=== PATIENT | female | born 1950 | race Caucasian/White ===

== ENCOUNTER 2016-03-04 11:18 | Outpatient (CLI) | payer MEDICARE, OTHER | END 2016-03-04 11:19 | disposition home or self-care (01) | DX: K76.0 Fatty (change of) liver, not elsewhere classified (principal) ==

== ENCOUNTER 2016-03-05 15:40 | Outpatient (CLI) | payer MEDICARE, OTHER | END 2016-03-05 15:41 | disposition home or self-care (01) | DX: M51.36 Other intervertebral disc degeneration, lumbar region (principal); M51.37 Other intervertebral disc degeneration, lumbosacral region; M47.816 Spondylosis without myelopathy or radiculopathy, lumbar region; M43.16 Spondylolisthesis, lumbar region ==

== ENCOUNTER 2017-09-01 09:10 | Outpatient (CLI) | payer OTHER, MEDICARE | END 2017-09-01 09:11 | disposition critical access hospital (66) | LOC: EMS 09:10 | PROVIDERS: ATTEND Surgery | DX: R07.9 Chest pain, unspecified (principal) | CPT/HCPCS: A0425; A0427 ==

== ENCOUNTER 2017-09-01 09:23 | Inpatient (IN) | payer OTHER, MEDICARE ==
--- NOTE | 2017-09-01 10:18 | XRAY Report ---
Procedure Date: 09/01/2017 Accession Number: [id number] / [id number] Procedure: XR - Chest 1 View X-Ray CPT Code: 29050 FULL RESULT: EXAM: CHEST RADIOGRAPHY EXAM DATE: 09/01/2017 10:00 AM. CLINICAL HISTORY: Cp. COMPARISON: Chest radiograph dated 09/01/2017. TECHNIQUE: 1 view. FINDINGS: Lungs/Pleura: No focal opacities evident. No pleural effusion. No pneumothorax. Mediastinum: Within exam limitations, the cardiomediastinal contour is normal. Other: None. IMPRESSION: No focal consolidation. RADIA
[2017-09-01 10:21] LABS: BASOPHILS # (AUTO) 0.1 10^3/uL (0.0-0.1); BASOPHILS % (AUTO) 0.9 %; EOSINOPHILS # (AUTO) 0.3 10^3/uL (0.0-0.7); EOSINOPHILS % (AUTO) 4.3 %; LYMPHOCYTES # (AUTO) 1.9 10^3/uL (1.5-3.5); LYMPHOCYTES % (AUTO) 30.6 %; MEAN CORPUSCULAR HEMOGLOBIN 34.2 pg (27.0-31.0); MEAN CORPUSCULAR HGB CONC 33.8 g/dL (32.0-36.0); MEAN CORPUSCULAR VOLUME 101.1 fL (81.0-99.0); MEAN PLATELET VOLUME 8.3 fL (7.9-10.8); MONOCYTES # (AUTO) 0.7 10^3/uL (0.0-1.0); MONOCYTES % (AUTO) 10.6 %; NEUTROPHILS # (AUTO) 3.3 10^3/uL (1.5-6.6); NEUTROPHILS % (AUTO) 53.6 %; PLT - PLATELET COUNT 233 10^3/uL (130-450); RED CELL DISTRIBUTION WIDTH 12.1 % (12.0-15.0); WHITE BLOOD COUNT 6.2 x10^3/uL (4.8-10.8)
--- NOTE | 2017-09-01 10:34 | ED Physician Documentation ---
History of Present Illness - Stated complaint Stated Complaint: ABD PX - Chief complaint Chief Complaint: Cardiac - Additonal information Additional information: hx from pt 67 f HTN HLD and strong fhx CAD this Am at 7 while in bed she develped chest and back pressure and pain to her jaw, SO, diaphoresis, NV called 911 was given asa and nitro sx eventually resolve - she thinks sx lasted at least 2 hr last EST 2013 was neg no leg swelling Review of Systems Constitutional: reports: Sweats. denies: Fever Cardiac: reports: Chest pain / pressure Respiratory: reports: Dyspnea GI: denies: Abdominal Pain, Vomiting, Diarrhea Musculoskeletal: denies: Extremity pain, Extremity swelling Endocrine: denies: Easy bruising / bleeding Immunocompromised: denies: Immunocompromised PD PAST MEDICAL HISTORY - Past Medical History Cardiovascular: Hypertension, High cholesterol - Past Surgical History Past Surgical History: Yes Ortho: Knee replacement - Present Medications Home Medications: Ambulatory Orders Medication Instructions Recorded Confirmed Lisinopril 10 mg PO DAILY 09/01/17 09/01/17 Simvastatin 20 mg PO QPM 09/01/17 09/01/17 Venlafaxine HCl [Venlafaxine HCl 150 mg PO DAILY 09/01/17 09/01/17 ER] - Allergies Allergies/Adverse Reactions: Allergies Allergy/AdvReac Type Severity Reaction Status Date / Time Penicillins Allergy Severe Hives Verified 09/26/12 12:21 - Social History Does the pt smoke?: No Smoking Status: Never smoker Does the pt drink ETOH?: No - Immunizations Immunizations are current?: Yes PD ED PE NORMAL - Vitals Vital signs reviewed: Yes - HEENT HEENT: Atraumatic - Neck Neck: Supple, no meningeal sign - Cardiac Cardiac: RRR - Respiratory Respiratory: No respiratory distress, Clear bilaterally - Abdomen Abdomen: Soft, Non tender - Derm Derm: Normal color - Extremities Extremities: No edema, No calf tenderness / cord - Neuro Neuro: Alert and oriented X 3 Results - Vitals Vitals: Vital Signs - 24 hr 09/01/17 09/01/17 09/01/17 09:38 10:44 12:10 Temperature 36.6 C 36.6 C Heart Rate 65 77 87 Respiratory 16 14 16 Rate Blood Pressure 142/78 H 126/70 117/66 O2 Saturation 100 94 96 09/01/17 12:36 Temperature Heart Rate 87 Respiratory Rate Blood Pressure 117/66 O2 Saturation Oxygen O2 Source Room air - EKG (time done) 0934 Rate: Rate (enter#) (60) Rhythm: NSR Intervals: Normal OR Ischemia: Q waves (inf) - Labs Labs: Laboratory Tests 09/01/17 09/01/17 09/01/17 10:15 10:15 10:15 WBC 6.2 RBC 4.10 L Hgb 14.0 Hct 41.5 MCV 101.1 H MCH 34.2 H MCHC 33.8 RDW 12.1 Plt Count 233 MPV 8.3 Neut # (Auto) 3.3 Lymph # (Auto) 1.9 Marin # (Auto) 0.7 Eos # (Auto) 0.3 Baso # (Auto) 0.1 Absolute Nucleated RBC 0.00 Nucleated RBC % 0.0 PT INR Sodium 138 Potassium 3.5 Chloride 105 Carbon Dioxide 23 Anion Gap 10.0 BUN 19 Creatinine 0.6 Estimated GFR (MDRD) 100 Glucose 95 Calcium 9.0 Magnesium Total Bilirubin 0.8 GGT AST 46 H ALT 58 Alkaline Phosphatase 39 L Troponin I < 0.04 Total Protein 6.9 Albumin 4.1 Globulin 2.8 Albumin/Globulin Ratio 1.5 Lipase 37 Vitamin B12 Folate TSH Free T4 09/01/17 09/01/17 09/01/17 10:15 14:20 14:20 WBC RBC Hgb Hct MCV MCH MCHC RDW Plt Count MPV Neut # (Auto) Lymph # (Auto) Marin # (Auto) Eos # (Auto) Baso # (Auto) Absolute Nucleated RBC Nucleated RBC % PT 10.7 INR 0.9 Sodium Potassium Chloride Carbon Dioxide Anion Gap BUN Creatinine Estimated GFR (MDRD) Glucose Calcium Magnesium Total Bilirubin GGT 103 H AST ALT Alkaline Phosphatase Troponin I Total Protein Albumin Globulin Albumin/Globulin Ratio Lipase Vitamin B12 720 Folate 12.33 TSH Free T4 09/01/17 09/01/17 09/01/17 14:20 14:20 14:20 WBC RBC Hgb Hct MCV MCH MCHC RDW Plt Count MPV Neut # (Auto) Lymph # (Auto) Marin # (Auto) Eos # (Auto) Baso # (Auto) Absolute Nucleated RBC Nucleated RBC % PT INR Sodium Potassium 3.1 L Chloride Carbon Dioxide Anion Gap BUN Creatinine Estimated GFR (MDRD) Glucose Calcium Magnesium 2.1 Total Bilirubin GGT AST ALT Alkaline Phosphatase Troponin I < 0.04 Total Protein Albumin Globulin Albumin/Globulin Ratio Lipase Vitamin B12 Folate TSH 2.59 Free T4 0.74 - Rads (name of study) CXR Radiology: See rad report (no acute) PD MEDICAL DECISION MAKING - ED course ED course: sx very concerning for ACS in pt with numerous risk factors sx presently resolved will req tele obs ЕКАТЕРИНА stress etc called hospitalist at 1110 - Sepsis Event Vital Signs: Vital Signs - 24 hr 09/01/17 09/01/17 09/01/17 09:38 10:44 12:10 Temperature 36.6 C 36.6 C Heart Rate 65 77 87 Respiratory 16 14 16 Rate Blood Pressure 142/78 H 126/70 117/66 O2 Saturation 100 94 96 09/01/17 12:36 Temperature Heart Rate 87 Respiratory Rate Blood Pressure 117/66 O2 Saturation Oxygen O2 Source Room air Departure - Departure Disposition: ED Place in Observation Clinical Impression: Chest pain Qualifiers: Chest pain type: unspecified Qualified Code(s): R07.9 - Chest pain, unspecified Condition: Good Discharge Date/Time: 09/01/17 12:39
[2017-09-01 10:39] LABS: ALBUMIN 4.1 g/dL (3.2-5.5); ALBUMIN/GLOBULIN RATIO 1.5 (1.0-2.2); BILIRUBIN,TOTAL 0.8 mg/dL (0.2-1.0); CREATININE 0.6 mg/dL (0.4-1.0); TOTAL PROTEIN 6.9 g/dL (6.7-8.2)
[2017-09-01] MEDS ORDERED: TEMAZEPAM 15 MG CAPSULE PO PRN (11:55)
[2017-09-01] MEDS ORDERED: MORPHINE 2 MG/ML SYRINGE IVP PRN (11:55)
[2017-09-01] MEDS ORDERED: ACETAMINOPHEN 325 MG TABLET PO PRN (11:55)
[2017-09-01] MEDS: NITROGLYCERIN SL 0.4 MG TABLET SL SCH ×2 (12:36→19:42)
[2017-09-01 14:46] LABS: MAGNESIUM 2.1 mg/dL (1.7-2.8)
[2017-09-01 15:05] LABS: THYROID STIMULATING HORMONE 2.59 uIU/mL (0.34-5.60)
[2017-09-01 15:07] LABS: FREE T4 (FREE THYROXINE) 0.74 ng/dL (0.58-1.64)
[2017-09-01 15:15] LABS: FOLATE 12.33 ng/mL (5.90 - >24.8)
[2017-09-01] MEDS ORDERED: LORazepam 2 MG/ML VIAL IVP PRN (15:31)
[2017-09-01 15:52] LABS: INR 0.9 (0.8-1.2); PT - PROTHROMBIN TIME 10.7 secs (9.9-12.6)
[2017-09-01] MEDS ORDERED: ENOXAPARIN 80 MG/0.8 ML SYRINGE SUBQ SCH (16:00)
[2017-09-01] MEDS: POTASSIUM CHLOR 10 MEQ/100 ML 10 MEQ/100 ML BAG IV SCH ×2 (16:05→21:24)
[2017-09-01] MEDS: METOPROLOL TARTRATE 25 MG TABLET PO SCH ×2 (16:10→21:32)
[2017-09-01] MEDS: SODIUM CHLORIDE FLUSH 0.9% 10 ML SYRINGE IVP SCH (16:27)
[2017-09-01] MEDS: NITROGLYCERIN 2% PASTE TOP SCH ×2 (16:27→21:34)
[2017-09-01] MEDS: ENOXAPARIN 80 MG/0.8 ML SYRINGE SUBQ SCH (16:29)
[2017-09-01] MEDS ORDERED: SODIUM CHLORIDE 0.9% 1,000 ML IV SCH (18:00)
[2017-09-01 18:47] LABS: BILIRUBIN,URINE NEGATIVE (NEGATIVE); GLUCOSE, URINE (UA) NEGATIVE (NEGATIVE); KETONES,URINE (UA) NEGATIVE (NEGATIVE); LEUKOCYTE ESTERASE, URINE TRACE (NEGATIVE); NITRITE,URINE NEGATIVE (NEGATIVE); OCCULT BLOOD,URINE NEGATIVE (NEGATIVE); PROTEIN,URINE NEGATIVE (NEGATIVE); UROBILINOGEN,URINE 0.2 (NORMAL) E.U./dL (NORMAL)
[2017-09-01 18:49] LABS: CLARITY,URINE CLEAR (CLEAR)
[2017-09-01 19:02] LABS: BACTERIA,URINE None Seen /HPF (None Seen); RBC,URINE None Seen /HPF (0-5); SQUAMOUS EPITHELIAL CELL,UR NONE SEEN (<= Few)
[2017-09-01] MEDS ORDERED: PROCHLORPERAZINE 10 MG/2 ML VIAL IVP PRN (19:17)
[2017-09-01] MEDS: SODIUM CHLORIDE FLUSH 0.9% 10 ML SYRINGE IVP PRN (19:28)
[2017-09-01] MEDS: THIAMINE 100 MG TABLET PO SCH (19:28)
[2017-09-01] MEDS ORDERED: NITROGLYCERIN SL 0.4 MG TABLET SL PRN (19:50)
[2017-09-01] MEDS ORDERED: NITROGLYCERIN SL 0.4 MG TABLET SL ONE (19:53)
[2017-09-01] MEDS ORDERED: ATORVASTATIN 40 MG TABLET PO SCH (21:00)
[2017-09-01] MEDS ORDERED: ATORVASTATIN 10 MG TABLET PO SCH (21:00)
[2017-09-02] MEDS: SODIUM CHLORIDE FLUSH 0.9% 10 ML SYRINGE IVP SCH ×2 (01:03→15:09)
[2017-09-02] MEDS: ENOXAPARIN 80 MG/0.8 ML SYRINGE SUBQ SCH (04:17)
[2017-09-02] MEDS: NITROGLYCERIN 2% PASTE TOP SCH ×2 (04:21→15:15)
[2017-09-02 04:52] LABS: VBG PH 7.302 (7.31-7.41)
[2017-09-02 04:57] LABS: BASOPHILS # (AUTO) 0.1 10^3/uL (0.0-0.1); EOSINOPHILS # (AUTO) 0.4 10^3/uL (0.0-0.7); EOSINOPHILS % (AUTO) 6.6 %; HGB - HEMOGLOBIN 14.6 g/dL (12.0-16.0); LYMPHOCYTES # (AUTO) 2.2 10^3/uL (1.5-3.5); LYMPHOCYTES % (AUTO) 37.8 %; MEAN CORPUSCULAR HEMOGLOBIN 34.4 pg (27.0-31.0); MEAN CORPUSCULAR HGB CONC 33.7 g/dL (32.0-36.0); MEAN CORPUSCULAR VOLUME 102.4 fL (81.0-99.0); MEAN PLATELET VOLUME 9.1 fL (7.9-10.8); MONOCYTES # (AUTO) 0.7 10^3/uL (0.0-1.0); MONOCYTES % (AUTO) 11.2 %; NEUTROPHILS # (AUTO) 2.6 10^3/uL (1.5-6.6); NEUTROPHILS % (AUTO) 43.4 %; PLT - PLATELET COUNT 233 10^3/uL (130-450); RED BLOOD COUNT 4.24 10^6/uL (4.20-5.40); RED CELL DISTRIBUTION WIDTH 12.3 % (12.0-15.0); WHITE BLOOD COUNT 5.9 x10^3/uL (4.8-10.8)
[2017-09-02 05:06] LABS: ALBUMIN 3.9 g/dL (3.2-5.5); ALBUMIN/GLOBULIN RATIO 1.6 (1.0-2.2); ALKALINE PHOSPHATASE 37 IU/L (42-121); ALT ALANINE AMINOTRANSFERASE 46 IU/L (10-60); AST ASPARTATE AMINOTRANSFERASE 34 IU/L (10-42); BILIRUBIN,TOTAL 0.9 mg/dL (0.2-1.0); BUN - BLOOD UREA NITROGEN 18 mg/dL (6-20); CALCIUM 9.2 mg/dL (8.5-10.3); CARBON DIOXIDE - CO2 23 mmol/L (21-32); CHLORIDE 109 mmol/L (101-111); CHOL/HDL RATIO 3.7 (<4.4); CHOLESTEROL 203 mg/dL; CREATININE 0.7 mg/dL (0.4-1.0); GFR - MDRD 84 (>89); GLUCOSE 102 mg/dL (70-100); HDL CHOLESTEROL 55 mg/dL; LDL CHOLESTEROL,CALCULATED 122 mg/dL; LDL/HDL RATIO 2.2 (<4.4); MAGNESIUM 2.3 mg/dL (1.7-2.8); PHOSPHORUS 5.1 mg/dL (2.5-4.6); SODIUM 140 mmol/L (135-145); TOTAL PROTEIN 6.3 g/dL (6.7-8.2); VLDL CHOLESTEROL 26 mg/dL
[2017-09-02] MEDS ORDERED: POTASSIUM CHLORIDE 20 MEQ TABLET PO SCH (08:00)
[2017-09-02] MEDS ORDERED: LISINOPRIL 20 MG TABLET PO SCH (09:00)
[2017-09-02] MEDS ORDERED: POLYETHYLENE GLYCOL 3350 17 GM PACKET PO SCH (09:00)
[2017-09-02] MEDS ORDERED: METOPROLOL TARTRATE 25 MG TABLET PO SCH (09:00)
[2017-09-02] MEDS ORDERED: FAMOTIDINE 20 MG TABLET PO SCH (09:00)
[2017-09-02] MEDS ORDERED: ASPIRIN EC 81 MG TABLET PO SCH (09:00)
[2017-09-02] MEDS ORDERED: VENLAFAXINE ER 75 MG CAPSULE PO SCH (09:00)
[2017-09-02] MEDS: SODIUM CHLORIDE FLUSH 0.9% 10 ML SYRINGE IVP PRN (10:13)
[2017-09-02] MEDS ORDERED: REGADENOSON 0.4 MG/5 ML SYRINGE IVP ONE ×2 (11:19→13:54)
[2017-09-02] MEDS ORDERED: AMINOPHYLLINE 250 MG/10 ML VIAL IV ONE (12:47)
--- NOTE | 2017-09-02 14:32 | Nuclear Medicine Report ---
Procedure Date: 09/02/2017 Accession Number: [id number] / [id number] Procedure: NM - Myocardial Perfusion STR/RST CPT Code: FULL RESULT: EXAM: SINGLE-ISOTOPE PHARMACOLOGICAL STRESS TEST WITH REGADENOSON. SINGLE-ISOTOPE AND ONE-DAY REST/STRESS MYOCARDIAL PERFUSION SCANS WITH TOMOGRAPHIC IMAGING, QUANTITATIVE ANALYSIS, WALL MOTION ANALYSIS AND CALCULATION OF EJECTION FRACTION. EXAM DATE: 09/02/2017 01:56 PM. CLINICAL HISTORY: Chest pain , Abn EKG. COMPARISON: None. TECHNIQUE: After the intravenous administration of 9.2 mCi of Tc-99m sestamibi, a rest myocardial perfusion scan was done with tomography. Motion correction was applied when appropriate. After an appropriate delay, pharmacological stress was performed with the infusion of 0.4 mg regadenoson per protocol. According to protocol, 38.8 mCi of Tc-99m sestamibi was injected for stress myocardial perfusion scan. Motion correction was applied when appropriate. Gated tomographic images were obtained for wall motion analysis and computation of left ventricular ejection fraction. FINDINGS: Perfusion images: Left ventricular chamber size is normal at rest and unchanged at stress. No convincing fixed perfusion deficits. There is LAD groove artifact. No convincing reversible perfusion deficits. Gated images: No convincing focal wall motion abnormality. The left ventricular ejection fraction is estimated at 74% (normal IMPRESSION: 1. No convincing reversible perfusion deficits to indicate stress-induced ischemia. 2. No convincing fixed perfusion deficits. 3. Left ventricular ejection fraction of 74% (normal 4. No focal wall motion abnormalities. RADIA ADDENDUM: 09/02/17 14:34 Discussed by phone with Dr. Delgado on 09/02/17 at 1435 hours.
[2017-09-02] MEDS: THIAMINE 100 MG TABLET PO SCH (15:09)
[2017-09-02 15:11] VITALS: BP 138/73
--- NOTE | 2017-09-02 15:59 | Discharge Plan ---
Discharge Plan Disposition: Home, Self Care Condition: Stable Prescriptions: Metoprolol Succinate [Toprol Xl] 25 mg PO DAILY #30 tab.er.24h Diet: Cardiac Activity Restrictions: Activity as Tolerated Shower Restrictions: No Driving Restrictions: No Instruction Topics: AFL/Afib, Atrial Flutter, ED Paroxysmal Atrial Flutter Additional Instructions or Follow Up instructions: Stop taking the Lisinopril. Start taking Toprol XL 25 mg daily. A prescription for a 1 month supply was sent to [facility] in [place]. Resume all your other pre-hospital medications. Start taking 1 aspirin daily (either 81 mg or 325 mg), for the rest of your life , for stroke and heart attack prevention. See your doctor in 7-10 days in follow-up. More cardiac tests may be needed ( such as a Holter monitor), or an adjustment in the Toprol dose may be needed. Decrease your alcohol intake to 1 drink per day. Red wine is preferred over a martini drink. No Smoking: If you smoke, Please STOP! Call for help. Follow-up with: Teresita Todd ARNP [Primary Care Provider] -
--- NOTE | 2017-09-02 21:16 | CARDIAC PROCEDURE NOTE ---
DATE OF SERVICE: 09/02/2017 Physician: Angely Delgado MD PROCEDURE: Lexiscan pharmaceutical stress test with myocardial perfusion nuclear imaging. Baseline EKG: Normal sinus rhythm, Q-waves present in leads III and aVF, poor R -wave progression, minimal J-point elevation in leads III and aVF. The patient underwent Lexiscan stress testing after signing informed consent. The patient developed her typical chest pressure and jaw pain, which she rated a 5-6/10 at maximum. These symptoms and a mild headache, nausea persisted at 5 minutes post Lexiscan. She therefore received Aminophylline 25 mg IV x2, which helped decrease her symptoms to nearly gone. EKG at peak: No new or different changes. IMPRESSION: Nondiagnostic stress test due to abnormal resting EKG using a pharmaceutical stress agent. Nuclear images reported separately. TD: 09/02/2017 20:03 MTDD
--- NOTE | 2017-09-09 18:29 | HISTORY & PHYSICAL EXAMINATION ---
DATE OF SERVICE: 09/01/2017 Physician: Angely Delgado MD HISTORY OF PRESENT ILLNESS: This is a 67-year-old white female with a strong family history of heart disease (both parents and many of her grandparents and siblings with cardiac disease), history of hypertension, elevated cholesterol who presented with chest pain. The patient states she has had palpitations for many years, which were never caught to determine a diagnosis on prior workup. She awoke this morning with palpitations which then resulted in chest pressure that radiated to the jaw. She also had nausea and vomiting and shortness of breath with this. She took aspirin and in the emergency room, she was given sublingual nitroglycerin and had relief. There has been mild chest pressure since that time and she has not told anyone. She was admitted from the emergency room to Observation for evaluation of chest pain. Moments ago she developed two paroxysmal episodes of atrial flutter with a ventricular rate of 180 and she did feel her typical palpitations with these, associated with jaw pain. She is now being moved from Observation status to inpatient status into the ICU for management of chest pain and new onset of paroxysmal atrial flutter. PAST MEDICAL HISTORY 1. Hypertension. 2. Elevated cholesterol. ALLERGIES: PENICILLIN. MEDICATIONS 1. Simvastatin 20 mg daily. 2. Lisinopril 10 mg daily. 3. Aspirin p.r.n. for pain, not a scheduled daily dose. 4. Venlafaxin ER 150 mg daily. SOCIAL HISTORY: The patient is a nonsmoker who never smoked. She drinks 2 or more Martinis per day. She uses no illicit drugs. She lives with her . She is retired from teaching. REVIEW OF SYSTEMS: The patient remembers having a stress test many years ago when she was being evaluated for the palpitations. She has had Holter monitors in the past, which were normal. She denies any history of sleep apnea. A comprehensive review of systems was performed and the pertinent positives are here and in the HPI, the rest are negative. PHYSICAL EXAMINATION GENERAL: White female who appears younger than her age. She is in no distress. VITAL SIGNS: Blood pressure 150/80, heart rate 70 in sinus rhythm currently, afebrile, room air saturation 98%. HEENT: Unremarkable. Her oral mucosa is moist. NECK: Without thyromegaly, JVD, or carotid bruits. CHEST: Clear. HEART: Heart sounds are normal. No audible murmur. No gallop. ABDOMEN: Soft, benign. EXTREMITIES: No clubbing, cyanosis, edema. NEUROLOGIC: Intact. LABORATORIES: Normal electrolytes. Normal BUN and creatinine. Elevated GGT at 101 (normal is 3-38). Troponin not detectable. Unremarkable CBC except elevated MCV at 101. Normal INR. Unremarkable urinalysis. CHEST X-RAY: No active disease. EKG: Normal sinus rhythm, inferior Q waves, poor R-wave progression across the precordium. IMPRESSION/DIAGNOSES 1. Chest pain. 2. Paroxysmal atrial flutter. 3. Hypertension. 4. Elevated cholesterol history. 5. Alcohol use (? abuse) with elevated MCV and GGT. PLAN: The patient is now in the ICU on telemetry. Begin therapeutic dose of Lovenox to manage her chest pain, which could be unstable angina. She has a CHADS score of 1 ( hypertension), therefore she should be on an aspirin dose daily. Recommend changing her lisinopril to a beta-carl which would help with both rate control and blood pressure. Check lipids and treat per guidelines. Recommend checking B12 and folate levels. Depending on her troponins, and a resting Echo result, if no wall motion abnormalities, then proceed to a stress test. The patient is agreeable with the plan. CODE STATUS: FULL CODE. DEEP VENOUS THROMBOSIS PROPHYLAXIS: Therapeutic doses of Lovenox will be ordered for angina. ATTESTATION: The patient is expected to be discharged or transferred to another facility within 96 hours: Yes. TD: 09/09/2017 18:01 KARAN
--- NOTE | 2017-09-09 19:29 | DISCHARGE SUMMARY ---
Physician: Angely Delgado MD DATE OF ADMISSION: 09/01/2017 DATE OF DISCHARGE: 09/02/2017 HISTORY OF PRESENT ILLNESS: This is a 67-year-old white female with a history of hypertension, hyperlipidemia and possible alcohol use in excess, who presented with palpitations that awoke her from sleep and resulted in chest pain radiating to the jaw along with nausea, vomiting, and shortness of breath. The symptoms were relieved with sublingual nitroglycerin. She received aspirin as well. She was initially placed in Observation but noted to have paroxysmal atrial flutter on 2 episodes, ventricular rates in the 180s. She was therefore moved to the ICU for evaluation and management. HOSPITAL COURSE AND DISCHARGE DIAGNOSES 1. Chest pain. The patient was managed with aspirin, beta-blockers, nitro paste. Her troponins were not detectable x2. An Echo was done that showed no resting wall motion abnormalities. She proceeded to a pharmaceutical stress test. She had no dysrhythmias during this. She did experience her typical chest pressure, which resolved with Aminophylline for reversal. There were no ischemic EKG changes during the pharmaceutical stress. The nuclear scan revealed no evidence of ischemia. It was felt that the patient's chest pain was related to the tachycardia (when in atrial flutter) since the palpitations preceded her chest pain. Since this patient has a strong family history of early heart disease on both sides of the family and in many family members, aggressive risk factor management is advised with blood pressure control, cholesterol control and she was advised to take an aspirin daily. 2. Paroxysmal atrial flutter. This patient's CHADS score is 1 (hypertension). The patient should be on daily aspirin, not aspirin p.r.n. pain. This was reviewed with the patient and she understands. The patient's management for blood pressure was also changed in order to use a beta-carl in case the atrial flutter should recur (her ventricular rate with her atrial flutter was 180). Thyroid function tests were done and there were no signs of hyperthyroidism. Another etiology of her atrial flutter may be alcohol excess. She was advised to decrease her alcohol intake from 2 Martinis per day to lower intake. 3. Hypertension. The patient's lisinopril preadmission dosing was stopped and she was put on Toprol-XL 25 mg daily for management of hypertension and if atrial flutter with a rapid rate should recur. 4. Hyperlipidemia. The patient's lipid panel revealed a total cholesterol of 203, an LDL of 128, HDL of 55, and triglycerides of 128. She should continue on a statin. 5. Alcohol use (possible abuse) with high MCV and elevated GGT. There were no signs of alcoholism or alcohol withdrawal, but her intake was advised to be decreased. B12 and folate levels were normal. LABS AND IMAGING: Reviewed and summarized above. CONDITION AT DISCHARGE: Stable. PHYSICAL EXAMINATION AT DISCHARGE VITAL SIGNS: Blood pressure 140/70, heart rate 70, afebrile, room air saturation 100%. HEENT: Unremarkable. NECK: Without JVD, thyromegaly, or carotid bruits. CHEST: Clear. HEART: Sounds normal. No murmur. ABDOMEN: Soft and benign. EXTREMITIES: No edema. NEUROLOGIC: Intact. MEDICATIONS AT DISCHARGE: 1. Toprol XL 25 mg daily. 2. Simvastatin 20 mg daily at night. 3. Venlafaxine ER 150 mg daily. 4. Aspirin 81 mg daily. Lisinopril was stopped. FOLLOWUP: With her PCP in the next 7-10 days. She may have to reestablish with a [employer], as she remembers seeing one in the past for the palpitations. CODE STATUS: FULL CODE. Time required to complete this entire discharge, chart review, patient education , prescription orders, dictation: 60 minutes. cc: JE Castillo TD: 09/09/2017 18:07 KARAN
--- NOTE | 2017-09-12 16:43 | HISTORY & PHYSICAL EXAMINATION ---
Chief Complaint - Chief Complaint Chief Complaint: Date of service was 09/01/17. See dictation of H&P dated . PMH/PSH - Past Medical History Cardiovascular: positive: Hypertension, High cholesterol Respiratory: positive: Sleep apnea Endocrine/Autoimmune: positive: None GI: positive: GERD : positive: None HEENT: positive: Chronic vision loss Psych: positive: Claustrophobia Musculoskeletal: positive: Rheumatoid arthritis Derm: positive: None - Past Surgical History Ortho: positive: Knee replacement Social & Family Hx - Social History Does the pt smoke?: No Smoking Status: Never smoker Does the pt drink ETOH?: No Meds/Allgy - Home Medications Home Medications: Ambulatory Orders Medication Instructions Recorded Confirmed Simvastatin 20 mg PO QPM 09/01/17 09/01/17 Venlafaxine HCl [Venlafaxine HCl 150 mg PO DAILY 09/01/17 09/01/17 ER] Metoprolol Succinate [Toprol Xl] 25 mg PO DAILY #30 tab.er.24h 09/02/17 - Allergies Allergies/Adverse Reactions: Allergies Allergy/AdvReac Type Severity Reaction Status Date / Time Penicillins Allergy Severe Hives Verified 09/26/12 12:21 Results - Lab Results Fish Bones: 09/02/17 04:10 09/02/17 04:10 CP/CHF Plan - Plan Patient Problems: All Active Problems Atrial flutter, paroxysmal (Acute) Chest pain (Acute)
== END 2017-09-02 15:35 | disposition home or self-care (01) | DRG 313 ==
LOC: EDUNIT# → ED 09:23 → OBS 11:55 → OBSVTOIN 14:29 → ICU 14:44
PROVIDERS: ADMIT Internal Medicine; ATTEND Internal Medicine
DX: R07.9 Chest pain, unspecified (principal); I48.92 Unspecified atrial flutter; I10 Essential (primary) hypertension; E78.5 Hyperlipidemia, unspecified; F10.10 Alcohol abuse, uncomplicated; Z79.899 Other long term (current) drug therapy; Z96.659 Presence of unspecified artificial knee joint; Z82.49 Family history of ischemic heart disease and other diseases of the circulatory system
CPT/HCPCS: 36415; 71045; 78452; 80053; 80061; 81001; 81003; 82330; 82607; 82746; 82977; 83690; 83721; 83735; 84100; 84132; 84439; 84443; 84484; 85025; 85610; 87150; 93005; 93017; 93306; 99284

== ENCOUNTER 2018-01-18 20:40 | Outpatient (CLI) | payer OTHER, MEDICARE ==
--- NOTE | 2018-01-19 16:06 | Ultrasound Report ---
Reason: KENDELL CERVICAL DYSPLASIA Procedure Date: 01/18/2018 Accession Number: [id number] / [id number] Procedure: US - Pelvic Complete CPT Code: FULL RESULT: EXAM: PELVIC ULTRASOUND EXAM DATE: 01/18/2018 09:45 PM. CLINICAL HISTORY: KENDELL, cervical dysplasia. COMPARISON: None. TECHNIQUE: Realtime transabdominal pelvic scan performed to identify the uterus and adnexa and as an overview of other pelvic structures with static image documentation. The transvaginal ultrasound portion of the examination could not be completed due to patient refusal. FINDINGS: Limited exam by absence of transvaginal ultrasound. Uterus: 7.3 x 3.6 x 2.5 cm, volume 34 cc. Anteverted position. Normal overall size and echotexture. Masses: None. Endometrium: 4.3 mm. Normal. Cervix: Unremarkable. Right Ovary: 2.0 x 1.3 x 1.4 cm, volume 1.9 cc. Normal echotexture and blood flow. Left Ovary: 2.0 x 1.6 x 1.6 cm, volume 2.7 cc. Normal echotexture and blood flow. Free Fluid: None. Other: None. IMPRESSION: Limited transabdominal ultrasound with no abnormality detected. RADIA
== END 2018-01-18 20:41 | disposition home or self-care (01) ==
LOC: DI 20:40
PROVIDERS: ATTEND Obstetrics & Gynecology
DX: N87.9 Dysplasia of cervix uteri, unspecified (principal)
CPT/HCPCS: 76830; 76856

== ENCOUNTER 2018-01-30 13:46 | Outpatient (CLI) | payer OTHER, MEDICARE ==
[2018-01-30 14:13] LABS: BASOPHILS # (AUTO) 0.1 10^3/uL (0.0-0.1); EOSINOPHILS # (AUTO) 0.5 10^3/uL (0.0-0.7); EOSINOPHILS % (AUTO) 7.6 %; HGB - HEMOGLOBIN 15.8 g/dL (12.0-16.0); LYMPHOCYTES # (AUTO) 1.7 10^3/uL (1.5-3.5); MEAN CORPUSCULAR HGB CONC 33.8 g/dL (32.0-36.0); MEAN CORPUSCULAR VOLUME 100.6 fL (81.0-99.0); MEAN PLATELET VOLUME 8.5 fL (7.9-10.8); MONOCYTES # (AUTO) 0.8 10^3/uL (0.0-1.0); MONOCYTES % (AUTO) 12.7 %; NEUTROPHILS # (AUTO) 3.4 10^3/uL (1.5-6.6); NEUTROPHILS % (AUTO) 52.7 %; PLT - PLATELET COUNT 246 10^3/uL (130-450); RED BLOOD COUNT 4.64 10^6/uL (4.20-5.40); RED CELL DISTRIBUTION WIDTH 12.9 % (12.0-15.0); WHITE BLOOD COUNT 6.5 x10^3/uL (4.8-10.8)
[2018-01-30 14:32] LABS: ALBUMIN 4.6 g/dL (3.2-5.5); ALBUMIN/GLOBULIN RATIO 1.6 (1.0-2.2); BILIRUBIN,TOTAL 0.9 mg/dL (0.2-1.0); CALCIUM 9.6 mg/dL (8.5-10.3); CREATININE 0.9 mg/dL (0.4-1.0); TOTAL PROTEIN 7.5 g/dL (6.7-8.2)
--- NOTE | 2018-01-30 15:15 | XRAY Report ---
Reason: TOTAL LAPROSCOPIC HYSTERECTOMY Procedure Date: 01/30/2018 Accession Number: [id number] / [id number] Procedure: XR - Chest 2 View X-Ray CPT Code: 88745 FULL RESULT: EXAM: CHEST RADIOGRAPHY EXAM DATE: 01/30/2018 02:47 PM. CLINICAL HISTORY: Total laparoscopic hysterectomy. COMPARISON: Chest 1 view 09/01/2017 9:52 AM Chest 2 views PA/LAT 09/26/2012 1:15 PM. TECHNIQUE: 2 views. FINDINGS: Lungs/Pleura: No focal opacities evident. No pleural effusion. No pneumothorax. Normal volumes. Mediastinum: Heart and mediastinal contours are unremarkable. Other: There are a few calcified hilar and mediastinal lymph nodes likely present and unchanged when compared to prior exam of 09/01/2017. IMPRESSION: Normal 2-view chest radiography. RADIA
== END 2018-01-30 13:47 | disposition home or self-care (01) ==
LOC: LAB 13:46
PROVIDERS: ATTEND Obstetrics & Gynecology
DX: Z01.811 Encounter for preprocedural respiratory examination (principal); Z01.812 Encounter for preprocedural laboratory examination; I44.4 Left anterior fascicular block; N87.9 Dysplasia of cervix uteri, unspecified; N39.3 Stress incontinence (female) (male)
CPT/HCPCS: 36415; 71046; 80053; 85025; 86850; 86900; 86901; 93005

== ENCOUNTER 2018-02-01 07:57 | Day surgery (SDC) | payer OTHER, MEDICARE ==
--- NOTE | 2018-01-24 20:27 | PREOP HISTORY & PHYSICAL ---
Date of Admission: 02/01/2018 IDENTIFICATION: A 67-year-old G2, P2-0-0-2. HISTORY OF PRESENT ILLNESS Patient presents today for her preoperative visit. She has been scheduled for a total laparoscopic hysterectomy, bilateral salpingo-oophorectomy, transobturator taping and cystoscopy on 02/01/2018. I have been following patient with respect to her history of cervical dysplasia. I first met her 01/12/2016 for colposcopy. Her cytology at that time was as follows: 03/02/2013, Pap smear was negative, but positive high-risk HPV. 02/08/2014, Pap semar was negative, but a positive high risk HPV. 02/02/2015 Pap smear was ASCUS H and a positive high risk HPV. 03/05/2015, ectocervical biopsy via colposcopy was a low grade squamous intraepithelial lesion/KENDELL 1. ECC without atypia. 12/10/2015 Pap smear was ASCUS with positive high risk HPV. Ectocervical biopsy on 01/12/2016 showed low grade intraepithelial lesion/KENDELL 1. Patient continued to have consistent cervical cytology. Due to recurrent low- grade squamous cervical dysplasia, on 02/01/2017 she underwent a LEEP. This came back with an anterior lip showing KENDELL 1 as well as the posterior lip. Further cytology revealed a 11/28/2017 Pap smear was ASCUS H with a positive HPV. She had colposcopy on 12/19/2017 which was not satisfactory secondary to her cervical os being stenotic. This, however, is not surprising given her previous LEEP. Biopsy at that time revealed KENEDLL 1. I discussed with patient her options are to continue serial cytology with colposcopy as indicated, repeating a LEEP or proceeding to a cold knife cone, and finally, she may have a hysterectomy. I was very obvious with her, telling her that sometimes it is advisory to undergo a repeat cold knife cone or LEEP procedure given the unsatisfactory colposcopy. However, since a LEEP procedure was done about a year ago and the margins were clear, I think the risk of her having a cervical cancer is extremely low. Patient, at this point in time, has verbalized her desire to proceed with a hysterectomy since she has obtained her deductible during this trace year. Patient has also had a fci history of urinary leakage. This occurs when she has increased intraabdominal pressure such as laughing, coughing, and sneezing. I had a long discussion with patient regarding the risks, benefits, alternatives, indications, expectations of the transobturator taping. Patient understands that there is a small risk of mesh erosion as well as a bladder obstruction. She will need to take antibiotics after this procedure in order to minimize the risk of postoperative cystitis. I did have a long discussion with patient about both the total laparoscopic hysterectomy and bilateral salpingo-oophorectomy, transobturator taping, and cystoscopy. She understood the intrinsic risk of anesthesia, hemorrhage, infection and damage to surrounding organs. Damage to surrounding organs may include but are not limited to an inadvertent laceration, cauterization or ligation of adjacent ureters, bladder, and intestines. Furthermore, with the surgery, she may have chronic pelvic pain secondary to adhesions. Should cervical cancer be shown on the pathology report, she would require to have a surgical staging procedure done by gynecological oncologist. Patient also had questions with regards to hormone replacement and an oophorectomy. Clarified for Concepcion that since she is already postmenopausal, she would not need to take any supplemental hormone replacement. After all patient's questions were answered to her satisfaction, she verbalized her desire to proceed with surgery. Consent forms have been signed. PAST MEDICAL HISTORY 1. Hypertension. 2. Depression. PAST SURGICAL HISTORY 1. Right ACL repair. 2. Right arm repair 1991. 3. Tonsillectomy. 4. LEEP procedure in 2017. ALLERGIES: PENICILLIN, WHICH SHE HAS HIVES. Her pharmacy of choice is [facility] in [place], [place]. MEDICATIONS 1. Lisinopril 10 mg 1 tab p.o. daily. 2. Venlafaxine. SOCIAL HISTORY: She denies any tobacco. She does consume alcohol on a social basis, as well as marijuana via Vape Pen. Patient is retired from the [employer], and was a former nanny. PAST MEDICAL HISTORY: Two term spontaneous vaginal deliveries, biggest baby weighing 7 pounds 7 ounces. She denies any sexually transmitted diseases. Menopause occurred at age 52 and she was on hormone replacement for heavy bleeding. Patient recalls it was only for a short period of time. Mammograms have been reported is within normal limits. FAMILY HISTORY: She denies any female carcinoma. REVIEW OF SYSTEMS: Negative unless otherwise stated. PHYSICAL EXAMINATION VITAL SIGNS: Height is 65 inches, weighs 176 pounds, BMI is 29.39, blood pressure 144/88. GENERAL: Patient is a well-developed, well-nourished female, in no apparent distress. She is alert and oriented x3. HEENT: Within normal limits. HEART: Rate is regular. No murmurs or rubs. PULMONARY: Lungs are clear to auscultation bilaterally. ABDOMEN: Soft, nontender. STUDIES: 01/18/2018 pelvic ultrasound shows a uterus measuring 7.3 x 3.6 x 2.5 cm and anteverted. Endometrium measures 4.3 mm. Ovaries are normal. There is no free fluid. ASSESSMENT AND PLAN 1. A 67-year-old G2, P2-0-0-2. 2. Cervical dysplasia. 3. Genuine stress urinary incontinence. PLAN 1. We will proceed to a total laparoscopic hysterectomy, bilateral salpingo- oophorectomy, transobturator taping, and a cystoscopy on 02/01/2018. It may be difficult to get the VCare in the cervix, as it is known to be stenotic. PATIENT IS ALLERGIC TO PENICILLIN, and I anticipate giving her clindamycin and gentamicin for postoperative cellulitis prophylaxis. 2. Patient has been given instructions to take ibuprofen and Tylenol as her main form of pain control. She has been given a prescription for oxycodone for any breakthrough pain she may experience. She has also given a prescription for Levaquin for prophylaxis of postoperative cellulitis. Finally, I just faxed over prescription of Vagifem for patient to be started now in order to optimize postoperative healing. 3. Patient is to see me at [facility] in 2 weeks for routine postoperative check. 4. Patient is to call me should she have any worsening fevers, chills, abdominal pain, or vaginal bleeding. TD: 01/24/2018 17:29 MTDTroy
[~2018-02-01 07:57] MED LIST: ACETAMINOPHEN 1,000 MG/100 ML 100 ML IV ONE; CELECOXIB 100 MG CAPSULE PO ONE; GABAPENTIN 400 MG CAPSULE ONE
[2018-02-01] MEDS ORDERED: MIDAZOLAM 2 MG/2 ML VIAL IVP ONE (07:58)
[2018-02-01] MEDS ORDERED: GLYCOPYRROLATE 1 MG/5 ML VIAL IVP ONE (07:58)
[2018-02-01] MEDS ORDERED: ROCURONIUM 50 MG/5 ML VIAL IVP ONE (07:58)
[2018-02-01] MEDS ORDERED: LIDOCAINE-MPF 2% 5 ML VIAL IM ONE (07:58)
[2018-02-01] MEDS ORDERED: ONDANSETRON 4 MG/2 ML VIAL IVP ONE (07:58)
[2018-02-01] MEDS ORDERED: DEXAMETHASONE 4 MG/ML VIAL IVP ONE (07:58)
[2018-02-01] MEDS ORDERED: PROPOFOL 200 MG/20 ML VIAL IVP ONE (07:58)
[2018-02-01] MEDS ORDERED: NEOSTIGMINE 1 MG/1 ML 10 ML MDV IVP ONE (07:58)
[2018-02-01] MEDS ORDERED: fentaNYL 250 MCG/5 ML VIAL IVP ONE (07:58)
[2018-02-01] MEDS ORDERED: LACTATED RINGERS 1,000 ML IV ONE ×3 (08:15→12:00)
[2018-02-01] MEDS ORDERED: SCOPOLAMINE PATCH TOP ONE (08:27)
--- NOTE | 2018-02-01 08:28 | ANESTHESIA ---
Pre-Anesthesia VS, & Labs - Diagnosis cervical dysplasia, genuine stress incontinence - Procedure Total laparoscopic hysterectomy, bilateral salphingectomy, bilateral oophorectomy, transobturator tape procedure and cystoscopy Vital Signs: Temp Pulse Resp BP Pulse Ox 36.5 C 92 16 157/94 H 96 02/01/18 08:21 02/01/18 08:21 02/01/18 08:21 02/01/18 08:21 02/01/18 08:21 Height 5 ft 5 in Weight (kg) 79.7 kg Body Mass Index 26.6 - NPO >8 hours - Is Patient ?: No Home Medications and Allergies Active Medications Clindamycin Phosphate (Cleocin 900 Mg/50 Ml) 50 mls @ 50 mls/hr IV ONCE EVERARDO Stop: 02/01/18 11:00 Gentamicin Sulfate 400 mg/ (Sodium Chloride) 110 mls @ 100 mls/hr IV ONCE EVERARDO Stop: 02/01/18 11:00 Simvastatin 20 mg PO QPM 09/01/17 Venlafaxine HCl [Venlafaxine HCl ER] 150 mg PO DAILY 09/01/17 Allergies/Adverse Reactions: Allergies Allergy/AdvReac Type Severity Reaction Status Date / Time Penicillins Allergy Severe Hives Verified 02/01/18 08:19 Anes History & Medical History - Anesthetic History Anesthesia Complications: reports: No previous complications, Post-Operative Nausea/Vomiting - Medical History Cardiovascular: reports: Hypertension, High cholesterol, Atrial flutter (per patient, transient, rare with metoprolol) Pulmonary: reports: Sleep apnea Gastrointestinal: reports: GERD Urinary: reports: None Musculoskeletal: reports: Rheumatoid arthritis Endocrine/Autoimmune: reports: None Blood Disorders: reports: None Skin: reports: None Smoking Status: Never smoker - Surgical History Orthopedic: Knee replacement (ORIF from injury, not total knee per patient) Exam General: Alert Dental: WNL Mouth Opening: Greater than 4 Fingerbreadths Neck Mobility: Reduced Mallampati classification: II Thyromental Distance: greater than 6 cm Respiratory: Lungs clear Cardiovascular: Regular rate Mental/Cognitive Status: Alert/Oriented X3 Plan Anesthesia Type: General Consent for Procedure(s) Verified and Reviewed: Yes Code Status: Attempt Resuscitation ASA classification: 2-Mild systemic disease Is this case an emergency?: No
[2018-02-01] MEDS ORDERED: CLINDAMYCIN IV 900 MG/50 ML IV SCH (09:00)
[2018-02-01] MEDS ORDERED: GENTAMICIN 400 MG in SODIUM CHLORIDE 0.9% 100ML 100 ML IV SCH (09:00)
[2018-02-01] MEDS ORDERED: BUPIVACAINE 0.25%-EPI 1:200000 PF 30 ML VIAL ONE (09:15)
[2018-02-01] MEDS ORDERED: LIDOCAINE MPF 1%-EPI 1:200000 30 ML VIAL ONE (09:16)
[2018-02-01] MEDS ORDERED: ESTROGENS, CONJUGATED CREAM 30 GM TUBE ONE (09:18)
[2018-02-01] MEDS ORDERED: ESTROGENS, CONJUGATED CREAM 30 GM TUBE VG ONE (10:41)
[2018-02-01] MEDS ORDERED: BUPIVACAINE 0.25%-EPI 1:200000 PF 30 ML VIAL SUBQ ONE ×2 (10:41)
[2018-02-01] MEDS ORDERED: HYDROcod/ACETAM 5/325 MG TABLET PO PRN (12:53)
[2018-02-01] MEDS ORDERED: ONDANSETRON 4 MG/2 ML VIAL IVP PRN ×2 (12:53)
[2018-02-01] MEDS ORDERED: HYDROmorphone 0.5 MG/0.5 ML SYRINGE IVP PRN (12:53)
[2018-02-01] MEDS ORDERED: LORazepam 2 MG/ML VIAL IVP PRN ×2 (12:53)
[2018-02-01] MEDS ORDERED: oxyCODONE 5 MG TABLET PO PRN (12:53)
[2018-02-01] MEDS ORDERED: ACETAMINOPHEN 500 MG TABLET PO SCH (13:00)
[2018-02-01] MEDS: HYDROmorphone 0.5 MG/0.5 ML SYRINGE IVP PRN ×2 (13:10→13:20)
--- NOTE | 2018-02-01 13:21 | OPERATIVE REPORT ---
Operative Report - Other Other Information/Narrative: Date of Operation: 02/01/2018 Surgeon: Erin Louie DO FACOG [employer] Fac[employer] Operator: Ryne Mims MD FACOG FICS Cashier Host/Hostess: Pedro Egan CRNA Anesthesia: GET Pre-op Dx: 1. 67 yo 2. Cervical dysplasia 3. Genuine stress incontinence Post-op Dx 1. 67 yo 2. Cervical dysplasia 3. Genuine stress incontinence Procedure: 1. LAVH 2. BSO 3. TOT 4. Cystoscopy Findings: Normal uterine fundus, ovaries, fallopian tubes, and appendix. Fatty liver. Cervix with post-surgical appearance, shortened. Drains: Romero catheter to gravity EBL: 50 mL Complications: None Dictation: [id number]
[2018-02-01] MEDS: HYDROmorphone 1 MG/ML CARPUJECT ONE ×2 (13:40→13:56)
[2018-02-01] MEDS ORDERED: HYDROmorphone 1 MG/ML CARPUJECT ONE (13:55)
[2018-02-01 15:22] VITALS: BP 122/70
--- NOTE | 2018-02-01 18:43 | OPERATIVE REPORT ---
DATE OF OPERATION: 02/01/2018 SURGEON: Erin Louie DO, FACOG. LOOM CHECKER: Ryne Mims MD, FACOG MARCI. SPEECH PATHOLOGIST: Pedro Egan CRNA. ANESTHESIA: General endotracheal tube. PREOPERATIVE DIAGNOSES 1. A 67-year-old G2, P2-0-0-2. 2. Cervical dysplasia. 3. Genuine stress incontinence. POSTOPERATIVE DIAGNOSES 1. A 67-year-old G2, P2-0-0-2. 2. Cervical dysplasia. 3. Genuine stress incontinence. PROCEDURE PERFORMED 1. Laparoscopic-assisted vaginal hysterectomy. 2. Bilateral salpingo-oophorectomy. 3. Transobturator taping. 4. Cystoscopy. FINDINGS: Normal uterine fundus, ovaries, fallopian tubes, and appendix. Fatty liver was seen. Cervix with postsurgical appearance, very shortened. DRAINS: One Romero catheter to gravity. ESTIMATED BLOOD LOSS: 50 mL COMPLICATIONS: None. BRIEF HISTORY: This is a patient of [facility] whom I have been seeing for abnormal Pap smears. Patient has had a series of abnormal Pap smears which resulted in 02/01/2017 LEEP procedure. This returned as a KENDELL 1 in both the anterior and posterior lip of the specimen. After the LEEP procedure, patient continued to have abnormal Pap smears with ASCUS H and ectocervical colposcopy biopsy revealing KENDELL 1. Patient verbalized a desire for definitive therapy with a simple hysterectomy. I discussed with patient the risks, benefits, alternatives, indications, and expectations of a total laparoscopic hysterectomy, bilateral salpingo-oophorectomy, cystoscopy, and transobturator taping. Patient did mention to me that she had signs of genuine stress incontinence. Whenever she laughs, coughs, or sneezes, she had loss of fluid. Included in our discussion were the risks of hemorrhage, infection, damage to surrounding organs, which may be an inadvertent laceration, cauterization, or ligation of the adjacent intestines, bladder, or ureters. Also with the procedure, she will never have vaginal bleeding or the opportunity to have children. After patient's questions were answered to her satisfaction, she verbalized her desire to proceed with surgery. Consent forms have been signed. OPERATION IN DETAIL: Patient was identified and consented. She was taken to the operating room where IV access was already in place. Sequential compression devices were placed on her lower extremities and turned on. Patient was then given satisfactory general endotracheal tube anesthesia as per Pedro Egan. She received clindamycin 900 mg IV, as well as gentamicin 5 mg/kg IV for her postoperative cellulitis prophylaxis. Romero catheter was placed in her bladder. Patient was then prepped and draped in normal sterile fashion in the lithotomy position using Yellofin stirrups. Timeout was performed which correctly identified the patient, site, and procedure itself. An open-sided speculum was placed in the vagina, and the cervix was identified. The cervix was very subtle and almost flush to the vagina. The cervical os was very stenotic. The cervix was dilated to 8-Lao, and a medium VCare laparoscopic colpotimizer and uterine manipulator were placed in the cervix and uterus. Attention was then turned towards the laparoscopic portion of the procedure. Three laparoscopic port sites all of 5 mm lengths were placed in the subumbilical fold and left and right lower quadrant. The lower quadrant incision locations were identified by first finding the anterior superior iliac spine and then moving 2 fingerbreadths medial and superior to their respective locations. These were all injected with 0.25% Marcaine with epinephrine. Stab incisions were made. Entry into the abdomen was made first in the subumbilical fold. This was done with the Visiport trocar. No trauma to intraabdominal organs was noted. Next, the 2 lower quadrant port sites were placed under direct visualization of the camera. CO2 gas was used as the distending media in order to obtain a satisfactory pneumoperitoneum. Inspection of the pelvis revealed a normal uterus, fallopian tubes, and ovaries. Appendix was seen, which was within normal limits. The liver, however, appeared to be fatty. The left adnexa was first identified and followed to its fimbriated end. The left adnexa was first freed by incising the infundibulopelvic ligament. The round ligament was then clamped, cauterized, and incised again with the LigaSure. This incision was carried through inferiorly in order to make an incision through the broad ligament. Incision was then made in the broad ligament, and a bladder flap was created. Further blunt dissection was performed in order to more fully developed the bladder flap. The left uterine artery was identified and then clamped, cut and then cauterized and incised with the LigaSure. Hemostasis was noted throughout the entire portion of this procedure. In a similar fashion, the right side of the uterus was then freed to the level of the uterine artery. The right adnexa was incised by cauterizing and incising the infundibulopelvic ligament with the LigaSure. The incision was carried down inferiorly to excise the round ligament. An incision was made in the broad ligament, and the incision was carried through inferiorly to join the bladder flap that had already been previously developed. The right uterine artery was then cauterized and incised again with the LigaSure. The bladder flap was then more fully developed. Incision was made in the lower portion of the anterior vagina. This incision was made vertically. However, despite making an incision where the superior cup of the VCare was palpated, I could not find the superior green cup. A fourth 5mm laparoscopic trocar was also placed to help improve visualization. Because of the patient's anatomy with the shortened cervix and difficult identification of the Vcare, I felt it to be in Concepcion's best interest to abandon a total laparoscopic hysterectomy and proceed to a laparoscopic-assisted vaginal hysterectomy. CO2 gas was then deflated out of the abdomen and the instruments, with the exception of the trocar sleeves, were removed out of the abdomen. Attention was then turned towards the vagina. The cervix was identified, and a circumferential incision was made around the cervix. The vagina was then bluntly dissected off the cervix. In doing so entrance into the posterior cul-de-sac was made. With further blunt dissection, entrance to the anterior cul-de-sac was performed. Next, the uterosacral ligaments were clamped, cut, and then suture ligated with 0 Vicryl. In doing so, the uterus was freed. The uterus, fallopian tubes, and ovaries removed out of the pelvis en bloc. The peritoneum was then closed with 2-0 Vicryl in a pursestring fashion. The uterosacral ligaments were tied together to help maintain a good pelvic floor. The vagina was then reapproximated with [id number] stitches using 0 Vicryl pop-offs. Hemostasis was noted. Attention was then turned towards the transobturator taping. An incision was made approximately 2 cm that was 1 cm inferior to the urethral orifice. Two other stab incisions were made in the inguinal gluteal fold at the level of the clitoris. Next, the incision that was made inferior to the urethra was further developed bluntly and sharply by tunneling towards the respective side of the stab incisions already made in the inguinal gluteal folds. The Ortiz suburethral sling was then placed in front of the suburethral area with the curved needles. The sling was then tightened so that it fit loosely around a heavy Esquivel scissors. Having felt confident about the sling laparoscopy was then performed. CO2 gas was used to insufflate the abdomen and the pelvis and abdomen were closely inspected. Hemostasis was noted throughout the abdomen and pelvis and particularly on the vaginal cuff. Photos of this were taken. All instruments were removed out of the abdomen, and CO2 gas was allowed to egress into the atmosphere. The 4 laparoscopic port sites were then closed with 4-0 Monocryl in a subcuticular fashion, as well as Dermabond. Cystoscopy was performed. A 30-degree cystoscope was placed in the bladder, and saline solution was used as distending media. Both urethral orifices were seen, and a satisfactory ureteral jets were noted bilaterally. Further inspection of the bladder found it to be intact without any bleeding, cautery wilson, suture, or mesh. A Romero catheter was placed in the bladder. The vagina was then closed with 0 Vicryl in [id number]-[id number] stitches. The slings that were protruding out from the inguinal gluteal folds were then trimmed to the level of the skin. These incisions were then closed with 4-0 Monocryl in subcuticular fashion. Dermabond was placed on top of incisions. The patient tolerated the procedure well and was taken back to recovery room in stable condition. She will be discharged to home later today after postoperative criteria are met, including that her pain is well controlled. There was no significant nausea or vomiting, she can ambulate and urinate. Patient is expected to see me at [facility] in 2 weeks for routine postoperative examination. She has prescriptions for Levaquin and oxycodone for her postoperative recovery. Patient is to call should she have any worsening fevers, chills, abdominal pain, or vaginal bleeding. All sponge, lap, and needle counts were correct x2 as per nurse report. TD: 02/01/2018 13:42 KARAN
[2018-02-01] MEDS ORDERED: CELECOXIB 100 MG CAPSULE PO SCH (21:00)
[2018-02-01] MEDS ORDERED: DOCUSATE SODIUM 100 MG CAPSULE PO SCH (21:00)
== END 2018-02-01 07:58 | disposition home or self-care (01) ==
LOC: SDS 07:57
PROVIDERS: ATTEND Obstetrics & Gynecology
PROC: 0TSD4ZZ Reposition Urethra, Percutaneous Endoscopic Approach (ICD-10-PCS; 2018-02-01)
PROC: 0UT9FZZ Resection of Uterus, Via Natural or Artificial Opening With Percutaneous Endoscopic Assistance (ICD-10-PCS; principal; 2018-02-01 09:00)
PROC: 0UT2FZZ Resection of Bilateral Ovaries, Via Natural or Artificial Opening With Percutaneous Endoscopic Assistance (ICD-10-PCS; 2018-02-01 09:00)
PROC: 0UT7FZZ Resection of Bilateral Fallopian Tubes, Via Natural or Artificial Opening With Percutaneous Endoscopic Assistance (ICD-10-PCS; 2018-02-01 09:00)
DX: N87.9 Dysplasia of cervix uteri, unspecified (principal); N39.3 Stress incontinence (female) (male); G47.30 Sleep apnea, unspecified; I10 Essential (primary) hypertension; F32.9 Major depressive disorder, single episode, unspecified; K76.0 Fatty (change of) liver, not elsewhere classified; I48.92 Unspecified atrial flutter
CPT/HCPCS: 57288; 58552; A9270; C1771; J0131; J1170; J3010; J3490; J7120

== ENCOUNTER 2018-02-16 11:27 | Outpatient (CLI) | payer OTHER, MEDICARE ==
--- NOTE | 2018-02-17 09:16 | Mammography Report ---
Reason: ENCNTR SCREEN MAMMOGRAM FOR MAILIGNANT NEOPLAM Procedure Date: 02/16/2018 Accession Number: [id number] / [id number] Procedure: KAPIL - Screening Mammo w/Choco CPT Code: FULL RESULT: EXAM: Screening Mammo w/Choco DATE: 02/16/2018 4:25 PM CLINICAL HISTORY: Screening encounter. No reported risk factors. TECHNIQUE: Bilateral CC and MLO views were obtained. COMPARISON: 01/15/2016 through 03/23/2013. FINDINGS: The breasts demonstrate diffuse fatty replacement bilaterally. Typically benign coarse calcifications seen bilaterally. No suspicious masses, clustered microcalcifications, or regions of architectural distortion are identified. IMPRESSION: Benign findings RECOMMENDATION: Routine annual screening unless otherwise clinically indicated. BIRADS CATEGORY 2: Benign findings STANDARD QUALIFYING STATEMENTS: 1. This examination was not reviewed with the aid of Computer-Aided Detection (CAD). 2. A negative or benign imaging report should not preclude biopsy if clinically suspicious findings are present. 3. Dense breasts may obscure an underlying neoplasm. 4. This examination was reviewed with the aid of 3D breast imaging (tomosynthesis).
== END 2018-02-16 11:28 | disposition home or self-care (01) ==
LOC: DI 11:27
PROVIDERS: ATTEND Obstetrics & Gynecology
DX: Z12.31 Encounter for screening mammogram for malignant neoplasm of breast (principal)
CPT/HCPCS: 77063; 77067

== ENCOUNTER 2018-11-23 13:31 | Outpatient (CLI) | payer OTHER, MEDICARE ==
--- NOTE | 2018-11-25 15:51 | XRAY Report ---
Reason: CONTUSION ELBOW OR FOREARM RT S50.10XA Procedure Date: 11/23/2018 Accession Number: [id number] / [id number] Procedure: XRS - Elbow 3 View RT CPT Code: FULL RESULT: EXAM: RIGHT ELBOW RADIOGRAPHY EXAM DATE: 11/23/2018 01:58 PM. CLINICAL HISTORY: Trauma with elbow pain. COMPARISON: FOREARM RT 11/23/2018 2:07 PM. TECHNIQUE: 3 views. FINDINGS: Bones: No obvious displaced acute fracture. Heterotopic ossification adjacent to the medial epicondyle suggest sequela of old injury or epicondylitis. Tiny olecranon spur. No suspicious osseous lesion. Joints: Large elbow joint effusion. No significant joint space narrowing. No dislocation. Other: Partially imaged soft tissue swelling overlying the dorsal aspect of the proximal forearm. IMPRESSION: 1. Large elbow joint effusion which is concerning for occult radial head fracture. Recommend CT or MRI elbow for further evaluation. RADIA
--- NOTE | 2018-11-25 15:52 | XRAY Report ---
Reason: CONTUSION ELBOW OR FOREARM RT S50.10XA Procedure Date: 11/23/2018 Accession Number: [id number] / [id number] Procedure: XRS - Forearm RT CPT Code: FULL RESULT: EXAM: RIGHT FOREARM RADIOGRAPHY EXAM DATE: 11/23/2018 01:58 PM. CLINICAL HISTORY: CONTUSION ELBOW OR FOREARM RT S50. 10XA. COMPARISON: None. TECHNIQUE: 2 views. FINDINGS: Bones: No visible fractures or bone lesions. Joints: Elevated anterior fat pad sign. Soft Tissues: Soft tissue swelling of mid forearm. IMPRESSION: No visible fractures, however elevated anterior fat pad sign. Recommend noncontrast CT elbow to evaluate for occult fracture. RADIA
== END 2018-11-23 13:32 | disposition home or self-care (01) ==
LOC: DI.S 13:31
PROVIDERS: ATTEND Nurse Practitioner Family
DX: S50.11XA Contusion of right forearm, initial encounter (principal); M25.421 Effusion, right elbow

== ENCOUNTER 2018-12-21 15:53 | Outpatient (CLI) | payer OTHER, MEDICARE ==
--- NOTE | 2018-12-22 12:10 | XRAY Report ---
Reason: CONTUSION,ELBOW OR FOREARM RT Procedure Date: 12/21/2018 Accession Number: [id number] / [id number] Procedure: XR - Elbow 3 View RT CPT Code: Final Report FULL RESULT: EXAM: RIGHT ELBOW RADIOGRAPHY EXAM DATE: 12/21/2018 04:12 PM. CLINICAL HISTORY: Contusion, elbow or forearm right. COMPARISON: ELBOW 3 VIEW RT 11/23/2018 2:11 PM. FOREARM RT 11/23/2018 2:07 PM. TECHNIQUE: 3 views. FINDINGS: Bones: Subtle linear lucency extending across the proximal olecranon is suspicious for an intra-articular nondisplaced fracture. Small ossification along the medial epicondyle is unchanged and likely is related to a remote injury or chronic enthesopathy. Joints: No subluxations or significant arthropathy. Anterior fat plate elevation is again demonstrated, consistent with a joint effusion. Soft Tissues: Possible mild dorsal soft tissue swelling redemonstrated. IMPRESSION: 1. Findings suspicious for a nondisplaced intra-articular olecranon fracture. 2. Joint effusion redemonstrated. RADIA
== END 2018-12-21 15:54 | disposition home or self-care (01) ==
LOC: DI 15:53
PROVIDERS: ATTEND Nurse Practitioner Family
DX: S50.01XA Contusion of right elbow, initial encounter (principal); M25.421 Effusion, right elbow

== ENCOUNTER 2019-12-13 13:05 | Outpatient (CLI) | payer MEDICARE, OTHER ==
--- NOTE | 2019-12-20 15:50 | Mammography Report ---
BILATERAL DIGITAL SCREENING MAMMOGRAM 3D/2D: 12/13/2019 CLINICAL: Routine screening. Comparison is made to exams dated: 02/16/2018 mammogram, 01/15/2016 mammogram, 02/03/2015 mammogram, an d 03/23/2013 mammogram - [facility]. The tissue of both breasts is predominantly fat ty. There are benign calcifications in both breasts. No significant masses, calcifications, or other findings are seen in either breast. There has been no significant interval change. IMPRESSION: BENIGN There is no mammographic evidence of malignancy. A 1 year screening mammogram is recommended. This exam was interpreted at Station ID: [id number]. NOTE: For mammograms, a report in lay terms will be sent to the patient. Approximately 15% of breast malignancies will not be visualized mammographically. In the management of a palpable breast mass, a negative mammogram must not discourage biopsy of a clinically suspicious lesion. Electronically Signed By: Mervin Lara M.D. [facility] [place]:12/20/2019 11:48:07 ACR BI-RADS Category 2: Benign Finding(s) 3342F PARENCHYMAL PATTERN: (F) - The breast(s) demonstrate(s) diffuse fatty replacement. BI-RADS CATEGORY: (2) - 2 RECOMMENDATION: (ANNUAL) - Recommend routine annual screening mammography. [id number] 1 year screening LATERALITY: (B)
== END 2019-12-13 13:06 | disposition home or self-care (01) ==
LOC: DI.N 13:05
DX: Z12.31 Encounter for screening mammogram for malignant neoplasm of breast (principal)
CPT/HCPCS: 77063; 77067

== ENCOUNTER 2020-09-23 14:09 | Outpatient (CLI) | payer MEDICARE, OTHER ==
[2020-09-23 20:02] LABS: BASOPHILS # (AUTO) 0.1 10^3/uL (0.0-0.1); BASOPHILS % (AUTO) 0.7 %; EOSINOPHILS # (AUTO) 0.3 10^3/uL (0.0-0.7); EOSINOPHILS % (AUTO) 4.6 %; HCT - HEMATOCRIT 48.3 % (37.0-47.0); HGB - HEMOGLOBIN 15.6 g/dL (12.0-16.0); LYMPHOCYTES % (AUTO) 28.2 %; MEAN CORPUSCULAR HEMOGLOBIN 34.1 pg (27.0-31.0); MEAN CORPUSCULAR HGB CONC 32.3 g/dL (32.0-36.0); MEAN CORPUSCULAR VOLUME 105.7 fL (81.0-99.0); MEAN PLATELET VOLUME 11.5 fL (7.9-10.8); MONOCYTES # (AUTO) 0.8 10^3/uL (0.0-1.0); MONOCYTES % (AUTO) 11.5 %; NEUTROPHILS # (AUTO) 3.9 10^3/uL (1.5-6.6); NEUTROPHILS % (AUTO) 54.6 %; PLT - PLATELET COUNT 233 10^3/uL (130-450); RED BLOOD COUNT 4.57 10^6/uL (4.20-5.40); RED CELL DISTRIBUTION WIDTH 12.3 % (12.0-15.0); WHITE BLOOD COUNT 7.1 x10^3/uL (4.8-10.8)
[2020-09-23 20:20] LABS: ALBUMIN 4.7 g/dL (3.2-5.5); ALBUMIN/GLOBULIN RATIO 1.5 (1.0-2.2); CALCIUM 9.2 mg/dL (8.5-10.3); CREATININE 0.6 mg/dL (0.4-1.0); POTASSIUM 3.8 mmol/L (3.5-5.0); TOTAL PROTEIN 7.8 g/dL (6.7-8.2)
[2020-09-23 20:27] LABS: THYROID STIMULATING HORMONE 2.85 uIU/mL (0.34-5.60)
[2020-09-23 20:29] LABS: FREE T4 (FREE THYROXINE) 0.72 ng/dL (0.58-1.64)
== END 2020-09-23 14:10 | disposition home or self-care (01) ==
LOC: LAB.S 14:09
PROVIDERS: ATTEND Nurse Practitioner Family
DX: L65.9 Nonscarring hair loss, unspecified (principal)
CPT/HCPCS: 36415; 80053; 84439; 84443; 85025

== ENCOUNTER 2020-11-27 16:37 | Outpatient (CLI) | payer MEDICARE ==
[2020-11-27 21:11] LABS: % IRON SATURATION 46 % (20-50); IRON 221 ug/dL (28-170); TOTAL IRON BINDING CAPACITY 476 ug/dL (250-450); TRANSFERRIN 340 mg/dL (192-382)
[2020-12-02 11:46] LABS: ANA SCREEN NEGATIVE (NEGATIVE)
== END 2020-11-27 16:38 | disposition home or self-care (01) ==
LOC: LAB.N 16:37
PROVIDERS: ATTEND Nurse Practitioner Family
DX: L65.9 Nonscarring hair loss, unspecified (principal); Z79.899 Other long term (current) drug therapy
CPT/HCPCS: 36415; 81599; 82306; 82728; 83540; 84270; 84402; 84403; 84466; 86038; 86592

== ENCOUNTER 2021-02-27 10:53 | Outpatient (CLI) | payer MEDICARE ==
--- NOTE | 2021-03-02 08:59 | Mammography Report ---
BILATERAL DIGITAL DIAGNOSTIC MAMMOGRAM 3D/2D: 02/27/2021 CLINICAL: Occasional right breast pain. Comparison is made to exams dated: 12/13/2019 mammogram, 02/16/2018 mammogram, 01/15/2016 mammogram, an d 02/03/2015 mammogram - [facility]. The tissue of both breasts is predominantly f atty. There is an irregular asymmetry in the left breast posterior depth lateral region seen on the cranioc audal view only. This is less prominent on spot compression view. No other significant masses, calcifications, or other findings are seen in either breast. There are b enign dystrophic calcifications in both breasts. IMPRESSION: INCOMPLETE: NEEDS ADDITIONAL IMAGING EVALUATION No mass seen in the right breast. Asymmetry in the left breast is indeterminate. A targeted ultrasound is recommended and will immediately follow. This exam was interpreted at Station ID: [id number]. NOTE: For mammograms, a report in lay terms will be sent to the patient. Approximately 15% of breast malignancies will not be visualized mammographically. In the management of a palpable breast mass, a negative mammogram must not discourage biopsy of a clinically suspicious lesion. Electronically Signed By: Mervin Lara M.D. slc/:02/27/2021 12:18:42 ACR BI-RADS Category 0: Incomplete 3340F PARENCHYMAL PATTERN: (F) - The breast(s) demonstrate(s) diffuse fatty replacement. BI-RADS CATEGORY: (0) - 0 Ultrasound [id number] Immediate follow-up LATERALITY: (B)
--- NOTE | 2021-03-02 08:59 | Ultrasound Report ---
LIMITED ULTRASOUND OF LEFT BREAST: 02/27/2021 CLINICAL: Patient returns today to evaluate a focal asymmetry in the left breast. Comparison is made to exams dated: 02/27/2021 mammogram, 12/13/2019 mammogram, 02/16/2018 mammogram, mammogram, 02/03/2015 mammogram, and 03/23/2013 mammogram - [facility]. Color flow and real-time ultrasound of the left breast 4-6 o'clock region were performed. Mccarthy scale images of the real-time examination were reviewed. No ultrasound correlate for the asymmetry in the lateral left breast posterior depth. IMPRESSION: PROBABLY BENIGN No ultrasound correlate for the asymmetry in the lateral left breast posterior depth. A follow-up mammogram and possible ultrasound in 6 months is recommended to demonstrate stability. Exam findings were conveyed to the patient. Patient is advised to monitor for significant change of the contralateral right breast pain. Clinical follow-up as needed. This exam was interpreted at Station ID: [id number]. Electronically Signed By: Mervin Lara M.D. [facility]/:02/27/2021 13:32:31 Ultrasound BI-RADS: 3 Probably benign BI-RADS CATEGORY: (3) - 3 Mammo and [place] [id number] 6 month follow-up LATERALITY: (B)
== END 2021-02-27 10:54 | disposition home or self-care (01) ==
LOC: DI 10:53
PROVIDERS: ATTEND Registered Nurse
DX: N64.4 Mastodynia (principal)

== ENCOUNTER 2021-06-05 08:00 | Outpatient (CLI) | payer MEDICARE ==
--- NOTE | 2021-06-05 17:04 | XRAY Report ---
PROCEDURE: Finger(s) RT INDICATIONS: 5TH DIGIT RIGHT HAND SPRAIN TECHNIQUE: AP hand, 3 views of the small finger(s) acquired. COMPARISON: None FINDINGS: Bones: There is a mildly displaced avulsion fracture off the dorsal base of the proximal phalanx of t he fifth finger. Soft tissues: No suspicious soft tissue calcifications. IMPRESSION: Mildly displaced dorsal base of fifth finger proximal phalanx fracture. Reviewed by: Justin Solo MD on 06/05/2021 5:03 PM PDT Approved by: Justin Solo MD on 06/05/2021 5:03 PM PDT Station ID: [id number]
--- NOTE | 2021-06-05 17:09 | XRAY Report ---
PROCEDURE: Forearm LT INDICATIONS: CONTUSION OF LEFT FOREARM TECHNIQUE: 2 views of the forearm were acquired. COMPARISON: None FINDINGS: Bones: No fractures or dislocations. No suspicious bony lesions. Soft tissues: No suspicious soft tissue calcifications or masses. IMPRESSION: No fracture. No osseous lesion. If there are persistent symptoms or continued clinical concern for pa thology, then repeat plain film radiographs (7-10 days) or advanced imaging (CT, MR, bone scan) shoul d be considered for further evaluation. Reviewed by: Kathleen Correa MD, PhD on 06/05/2021 5:07 PM PDT Approved by: Kathleen Correa MD, PhD on 06/05/2021 5:07 PM PDT Station ID: [id number]
== END 2021-06-05 23:59 | disposition home or self-care (01) ==
LOC: DI.S 08:00
PROVIDERS: ATTEND Emergency Medicine
DX: S50.12XA Contusion of left forearm, initial encounter (principal); S62.616A Displaced fracture of proximal phalanx of right little finger, initial encounter for closed fracture

== ENCOUNTER 2022-01-12 12:30 | Outpatient (CLI) | payer MEDICARE ==
--- NOTE | 2022-01-13 10:34 | Mammography Report ---
UNILATERAL LEFT DIGITAL DIAGNOSTIC MAMMOGRAM 3D/2D WITH MEDIOLATERAL: 01/12/2022 CLINICAL: 6 month follow-up L breast for stability of asymmetry Laterally. Comparison is made to exams dated: 02/27/2021 ultrasound, 02/27/2021 mammogram, 12/13/2019 mammogram, 02/16/2018 mammogram, 01/15/2016 mammogram, and 02/03/2015 mammogram - [facility]. The left breast is almost entirely fatty (category a/<25% glandular tissue). There is a stable asymmetry in the left breast posterior depth lateral region seen on the craniocauda l view only. No other significant masses or calcifications are seen in the breast. IMPRESSION: PROBABLY BENIGN The stable asymmetry in the left breast is probably benign. A follow-up mammogram in 6 months is recommended to demonstrate stability. Based on the Tyrer Cuzick model (a risk assessment model) the patients lifetime risk is 3.1% and her 10 year risk is 2.0%. According to the ACR, ACS, and NCCN guidelines, an annual breast MRI exam treasure g with mammogram is recommended if the patients lifetime risk is 20% or greater. This exam was interpreted at Station ID: [id number]. NOTE: For mammograms, a report in lay terms will be sent to the patient. Approximately 15% of breast malignancies will not be visualized mammographically. In the management of a palpable breast mass, a negative mammogram must not discourage biopsy of a clinically suspicious lesion. Electronically Signed By: Greg Sanchez M.D. lc/:01/12/2022 13:23:18 ACR BI-RADS Category 3: Probably benign 3343F PARENCHYMAL PATTERN: (F) - The breast(s) demonstrate(s) diffuse fatty replacement. BI-RADS CATEGORY: (3) - 3 Mammogram [id number] 6 month follow-up LATERALITY: (B)
== END 2022-01-12 12:31 | disposition home or self-care (01) ==
LOC: DI 12:30
PROVIDERS: ATTEND Nurse Practitioner Family
DX: R92.8 Other abnormal and inconclusive findings on diagnostic imaging of breast (principal)

== ENCOUNTER 2022-09-06 10:45 | Outpatient (CLI) | payer MEDICARE ==
--- NOTE | 2022-09-07 12:09 | Mammography Report ---
BILATERAL DIGITAL DIAGNOSTIC MAMMOGRAM 3D/2D: 09/06/2022 CLINICAL: Patient returns for a 6 month follow up of the left breast, due for bilateral exam. Comparison is made to exams dated: 01/12/2022 mammogram, 02/27/2021 mammogram, 12/13/2019 mammogram, 02/16/2018 mammogram, 01/15/2016 mammogram, and 02/03/2015 mammogram - [facility]. Both breasts are almost entirely fatty (category a/<25% glandular tissue). There is a stable asymmetry in the left breast posterior depth lateral region seen on the craniocauda l view only. No other significant masses, calcifications, or other findings are seen in either breast. IMPRESSION: PROBABLY BENIGN The stable asymmetry in the left breast is probably benign. A follow-up mammogram in 6 months is recommended to demonstrate stability. Based on the Tyrer Cuzick model (a risk assessment model) the patients lifetime risk is 2.9% and her 10 year risk is 2.0%. According to the ACR, ACS, and NCCN guidelines, an annual breast MRI exam treasure g with mammogram is recommended if the patients lifetime risk is 20% or greater. This exam was interpreted at Station ID: [id number]. NOTE: For mammograms, a report in lay terms will be sent to the patient. Approximately 15% of breast malignancies will not be visualized mammographically. In the management of a palpable breast mass, a negative mammogram must not discourage biopsy of a clinically suspicious lesion. Electronically Signed By: Greg Sanchez M.D. lc/:09/06/2022 11:48:43 ACR BI-RADS Category 3: Probably benign 3343F PARENCHYMAL PATTERN: (F) - The breast(s) demonstrate(s) diffuse fatty replacement. BI-RADS CATEGORY: (3) - 3 Mammogram [id number] 6 month follow-up LATERALITY: (B)
== END 2022-09-06 10:46 | disposition home or self-care (01) ==
LOC: DI 10:45
PROVIDERS: ATTEND Registered Nurse
DX: R92.8 Other abnormal and inconclusive findings on diagnostic imaging of breast (principal)

== ENCOUNTER 2023-06-02 10:47 | Outpatient (CLI) | payer MEDICARE ==
--- NOTE | 2023-06-03 09:42 | Mammography Report ---
UNILATERAL LEFT DIGITAL DIAGNOSTIC MAMMOGRAM 3D/2D: 06/02/2023 Comparison is made to exams dated: 09/06/2022 mammogram, 01/12/2022 mammogram, 02/27/2021 mammogram, 1 mammogram, 02/16/2018 mammogram, and 01/15/2016 mammogram - [facility]. There are scattered areas of fibroglandular density in the left breast (category b / 25%-50% glandula r tissue). There is a asymmetry in the left breast posterior depth outer region seen on the craniocaudal view on ly, stable since February 2021. No prior ultrasound correlate identified. No other significant masses or calcifications are seen in the breast. IMPRESSION: BENIGN Left breast asymmetry in the outer position, stable since February 2021. Given this finding has demons trated over two years of stability, it is consistent with a benign process. No mammographic evidence of malignancy. Recommend return to annual bilateral mammogram screening, which patient will be due fo r in 3 months (August 2023). Findings and recommendations were conveyed to the patient during today's evaluation. Based on the Tyrer Cuzick model (a risk assessment model) the patient's lifetime risk is 4.2% and her 10 year risk is 3.1%. According to the ACR, ACS, and NCCN guidelines, an annual breast MRI exam treasure g with mammogram is recommended if the patient's lifetime risk is 20% or greater. This exam was interpreted at Station ID: [id number]. NOTE: For mammograms, a report in lay terms will be sent to the patient. Approximately 15% of breast malignancies will not be visualized mammographically. In the management of a palpable breast mass, a negative mammogram must not discourage biopsy of a clinically suspicious lesion. Electronically Signed By: Isabella Anderson M.D., Ph.D. eb/:06/02/2023 12:16:49 ACR BI-RADS Category 2: Benign Finding(s) 3342F PARENCHYMAL PATTERN: (A) - The breast(s) demonstrate(s) scattered fibroglandular densities. BI-RADS CATEGORY: (2) - 2 RECOMMENDATION: (ANNUAL) - Recommend routine annual screening mammography. [id number] 1 year screening LATERALITY: (B)
== END 2023-06-02 10:48 | disposition home or self-care (01) ==
LOC: DI 10:47
PROVIDERS: ATTEND Registered Nurse
DX: R92.322 Mammographic fibroglandular density, left breast (principal); R92.8 Other abnormal and inconclusive findings on diagnostic imaging of breast